=== PATIENT | female | born 1990 | race African-American/Black ===

== ENCOUNTER 2018-01-22 08:43 | Day surgery (SDC) | payer MEDICAID ==
[~2018-01-22] VITALS: Ht 162.6 cm; Wt 58.6 kg
--- NOTE | ~2018-01-22 | OP ---
PATIENT NAME: CHELSEA ALONSO MEDICAL RECORD: [id number] :88 LOCATION:[id number] ADMISSION DATE: SURGEON: KRISHNA GUTIÉRREZ DO DATE OF OPERATION: 01/22/2018 PROCEDURE: Colonoscopy. INDICATIONS FOR PROCEDURE: Change in bowel habits and hematochezia. SCOPE: Olympus video pediatric colonoscope. MEDICATIONS: Propofol 270 mg IV per anesthesia. ESTIMATED BLOOD LOSS: None. COMPLICATIONS: None. FINDINGS: Informed consent was given. The patient was made comfortable with the above medication. After reaching an adequate level of sedation by slow IV push, the patient was placed on her left side. A digital rectal examination was performed and was normal. The endoscope was then advanced under direct visualization through the rectum to the cecum and terminal ileum. The endoscope was slowly withdrawn and the mucosa was carefully examined. The prep quality was good. There were no polyps visualized on today's examination. There were no diverticula. Retroflexion was performed in the rectum with visualization of grade I internal hemorrhoids without bleeding. The endoscope was then withdrawn from the patient. The patient tolerated the procedure well and there were no complications. IMPRESSION: 1. Normal terminal ileum. 2. Normal colonic mucosa. 3. Grade I internal hemorrhoids without bleeding. PLAN AND RECOMMENDATIONS: 1. Discharge home when recovery parameters are met. 2. High fiber diet. 3. Supplement diet with 1-2 tablespoons of Metamucil or psyllium husk fiber daily. 4. Continue MiraLax 1 cap daily as needed for constipation. 5. Recall colonoscopy at age 44 for colon cancer screening purposes or unless symptoms warrant sooner evaluation. TRANSINT:[id number] Voice Confirmation ID: [id number] DOCUMENT ID: [id number] KRISHNA GUTIÉRREZ DO at 1255 CC: [id number] DICTATION DATE: 01/22/18 1235 [facility] [employer]: 01/22/18 1318 [facility] 01/22/[address] [id number]
[2018-01-22 09:22] LABS: BASOPHILS 0.6 % (0-2); EOSINOPHILS 1.7 % (0-7); HEMATOCRIT 34.7 % (36.0-48.0); HEMOGLOBIN 10.8 g/dL (12-16); IMMATURE GRANULOCYTES 0.2 % (0-5); LYMPHOCYTES 23.8 % (15-50); MCH 25.5 pg (26.0-34.0); MCHC 31.1 g/dL (31.0-37.0); MEAN PLATELET VOLUME 11.1 fL (7.4-10.4); MONOCYTES 10.4 % (2-11); NEUTROPHILS 63.3 % (40-80); PLATELET COUNT 266 10x3/uL (130-400); RBC 4.23 10x6/uL (4.00-5.40); RDW 15.2 % (11.5-14.5); WBC 5.4 10x3/uL (4.8-10.8)
[2018-01-22 09:24] LABS: ALBUMIN 3.7 g/dL (3.4-5.0); ALKALINE PHOSPHATASE 67 U/L (46-116); ALT (SGPT) 11 U/L (10-68); BILIRUBIN - TOTAL 0.37 mg/dL (0.2-1.3); CALC OSMOLALITY 281 mosm/kg (275-300); CALCIUM 8.9 mg/dL (8.5-10.1); CARBON DIOXIDE 31.7 mmol/L (21.0-32.0); CHLORIDE - SERUM 106 mmol/L (98-107); CREATININE - SERUM 0.9 mg/dL (0.6-1.3); GLUCOSE 87 mg/dL (74-106); POTASSIUM - SERUM 3.9 mmol/L (3.5-5.1); PROTEIN - SERUM 7.8 g/dL (6.4-8.2); SODIUM 143 mmol/L (136-145); UREA NITROGEN 6 mg/dL (7-18); eGFR NON AFRICAN AMERICAN 78 mL/min (90-120)
[2018-01-22 09:25] LABS: APTT 32.4 SECONDS (22.8-39.4); HCG SERUM NEGATIVE (NEGATIVE); INR 1.13 (0.85-1.17); PROTIME 14.1 SECONDS (11.6-15.0)
[2018-01-22 09:46] VITALS: BP 107/65; Ht 162.6 cm; Wt 58.6 kg
== END 2018-01-22 13:45 | disposition home or self-care (01) ==
LOC: D.OPS 08:43
PROVIDERS: Anesthesiology
DX: K64.0 First degree hemorrhoids (principal); Z01.812 Encounter for preprocedural laboratory examination

== ENCOUNTER 2020-10-25 17:42 | Emergency (ER) | payer BC ==
[~2020-10-25] VITALS: Ht 162.6 cm; Wt 68.2 kg
[2020-10-25 17:49] VITALS: BP 120/73; Ht 162.6 cm; Wt 68.2 kg
[2020-10-25] MEDS ORDERED: VOLTAREN75 MG PO (19:10)
== END 2020-10-25 19:39 | disposition home or self-care (01) ==
LOC: D.ER 17:42
DX: M54.5 Low back pain (principal); V89.2XXA Person injured in unspecified motor-vehicle accident, traffic, initial encounter; Y93.9 Activity, unspecified; Y92.9 Unspecified place or not applicable; M79.605 Pain in left leg; M79.604 Pain in right leg